=== PATIENT | male | born 1985 | race American Indian/Alaskan Native ===

== ENCOUNTER 2024-03-16 02:39 | Emergency (ER) | payer OTHER, SELFPAY ==
[2024-03-16 02:45] VITALS: BP 169/103
[2024-03-16 03:20] VITALS: BMI 31.1
--- NOTE | 2024-03-16 03:39 | ED.GENMED ---
History of Present Illness
<LAYA Vazquez (Lena) - Last Filed: 03/16/24 04:31>
General
Chief Complaint: Chest Pain
Source: patient
Exam Limitations: none
Time Seen by Provider: 03/16/24 03:26
Nursing documentation reviewed up to this point in time: agreed with
History of Present Illness
History of Present Illness:
Pt is a 38 yo male with PMHx of HLD managed with atorvastatin who presents to the ED after consuming cocaine earlier this evening with chest pain x a few hours. Pt reports he felt his heart racing, chest tightness, and clamminess. He took two 81mg
aspirin prior to awakening his to bring him to the ED for evaluation. In triage and on exam he is no longer symptomatic. He now denies arm or leg weakness, any dizziness or lightheadedness, vision changes, N/V, dyspnea, chest pain,
palpitations, abdominal pain. He has experienced this chest pain previously when he did cocaine 'years ago', with no cardiac sequelae. \\
Reports using cocaine 1-2x a month.
Concurrent alcohol consumption with cocaine tonight.
FHx of cardiac conditions - mother: 'some sort of double bypass', grandparents: [place]
Past History
<LAYA Vazquez (Lena) - Last Filed: 03/16/24 04:31>
Past History
ED Past Medical History: Hypercholesterolemia
Social History
Alcohol: Occasional
Drug: Cocaine (1-2x a month)
Personal:
Living: with family
Family History
Family History: CAD
Phy Exam
<LAYA Vazquez (Lena) - Last Filed: 03/16/24 04:31>
General Physical Exam
General Presentation: well appearing and no apparent distress
General age: appears stated age
General Skin: warm and dry
General Habitus: normal
General Mental: alert
General Hydration: appears well hydrated
ENT Exam
ENT Exam: EOMI
Eye Exam
Eye Exam: PERRL and EOMI
Pupil Exam: Bilateral: round, reactive and pinpoint
Cardiovascular Exam
Cardiovascular Exam: regular rate/rhythm, no edema, no gallop, no JVD, no murmur and normal peripheral pulses
Heart Sounds: normal
Pulmonary Exam
Pulmonary Exam: lungs clear and no respiratory distress
Gastrointestinal Exam
Gastrointestinal Exam: non tender and soft
Neurological Exam
Neurological Exam: alert, oriented x3 and speech normal
Musculoskeletal Exam
Musculoskeletal Exam: full ROM
Skin Exam
Skin Exam: normal color and warm/dry
Psychiatric Exam
Psychiatric Exam: normal mood/affect
Scores
<Thania Martinez DO - Last Filed: 03/16/24 05:23>
Heart Score for Chest Pain Patients
STEMI patient?: No
History: Slightly or Non-Suspicious
ECG: Normal
Age: </= 45 years
Risk Factors: 1 or 2 Risk Factors
Troponin: </= Normal Limit
Heart Score for Chest Pain Patients: 1
Heart Score Risk: 2.5% MACE over next 6 weeks
Course
<ST Vazquez (Lena)[place] - Last Filed: 03/16/24 04:31>
Orders/Labs/Results
Orders:
Orders
03/16/24 02:44
EKG [Electrocardiogram (*1)] Urgent
Reason for Study: Chest Pain
EKG- Treatment ONCE
03/16/24 03:45
0.9% Sodium Chloride 1000 ml [Nss] 1,000 ml IV BOLUS
03/16/24 03:50
Complete Blood Count/With Diff Urgent
TSH Reflex To Free T4 Urgent
03/16/24 03:51
Basic Metabolic Panel Urgent
Troponin I Urgent
Abnormal Lab Results
03/16/24 03/16/24
03:50 03:51
MCV 77.2 L fL
(80.0-94.0)
Absolute Neuts (auto) 7.4 H 10^3/uL
(1.4-6.5)
Lymphocytes % 19.7 L %
(20.5-51.1)
Glucose 145 H mg/dl
(70-99)
03/16/24 03:50
03/16/24 03:51
Vital Signs
Initial and Last Documented VS:
Initial Vital Signs
Temp Pulse Resp BP Pulse Ox
96.9 F L 115 18 169/103 96
03/16/24 02:45 03/16/24 02:45 03/16/24 02:45 03/16/24 02:45 03/16/24 02:45
Last Documented Vital Signs
Temp Pulse Resp BP Pulse Ox
96.9 F L 83 8 137/85 96
03/16/24 02:45 03/16/24 05:00 03/16/24 05:00 03/16/24 05:00 03/16/24 05:00
<Thania Martinez, DO - Last Filed: 03/16/24 05:23>
Orders/Labs/Results
Orders:
Orders
03/16/24 02:44
EKG [Electrocardiogram (*1)] Urgent
Reason for Study: Chest Pain
EKG- Treatment ONCE
03/16/24 03:45
0.9% Sodium Chloride 1000 ml [Nss] 1,000 ml IV BOLUS
03/16/24 03:50
Complete Blood Count/With Diff Urgent
TSH Reflex To Free T4 Urgent
03/16/24 03:51
Basic Metabolic Panel Urgent
Troponin I Urgent
Abnormal Lab Results
03/16/24 03/16/24
03:50 03:51
MCV 77.2 L fL
(80.0-94.0)
Absolute Neuts (auto) 7.4 H 10^3/uL
(1.4-6.5)
Lymphocytes % 19.7 L %
(20.5-51.1)
Glucose 145 H mg/dl
(70-99)
03/16/24 03:50
03/16/24 03:51
Vital Signs
Initial and Last Documented VS:
Initial Vital Signs
Temp Pulse Resp BP Pulse Ox
96.9 F L 115 18 169/103 96
03/16/24 02:45 03/16/24 02:45 03/16/24 02:45 03/16/24 02:45 03/16/24 02:45
Last Documented Vital Signs
Temp Pulse Resp BP Pulse Ox
96.9 F L 83 8 137/85 96
03/16/24 02:45 03/16/24 05:00 03/16/24 05:00 03/16/24 05:00 03/16/24 05:00
<LAYA Vazquez (Lena) - Last Filed: 03/16/24 04:31>
MDM/Problems Addressed
Differential Diagnosis Includes:
38yo male with recent ingestion of cocaine and alcohol, presenting with chest pain, palpitations, and clamminess.
Concern for acute coronary syndrome, [place], and cocaine-induced chest pain.
Reports using cocaine 1-2x a month.
Concurrent alcohol consumption with cocaine tonight.
FHx of cardiac conditions - mother: 'some sort of double bypass', grandparents: [place]
EKG: sinus tachycardia, normal axis
Given the FHx of cardiac conditions, a CBC, BMP, and troponins were ordered.
<Thania Martinez DO - Last Filed: 03/16/24 05:23>
*Pulse Oximetry
Patient hypoxic: no
*EKG
Interpreted by ED Provider?: Yes
Comparison EKG: no comparison EKG present
Rate: tachycardiac
Rhythm: sinus
[place]: normal axis
Interval: normal interval
QRS Pattern: normal QRS
Ischemia: no ischemia
*Pump Installation And [employer]icer Interpretation
Rate: normal
Interpretation: normal
Rhythm: sinus
*Critical Care Note
Total Time (30-74mins, 75-104mins- exclusive of procedures): Not Applicable
ED Attending Note
<LAYA Vazquez (Lena) - Last Filed: 03/16/24 04:31>
-
Portions of this chart may have been created with voice recognition software.� Occasional wrong word or��sound alike� substitutions may have occurred due to the inherent limitations of voice recognition software.
<Thania Martinez DO - Last Filed: 03/16/24 05:23>
ED Attending Note
Patient seen and examined by attending physician: Yes
I performed the substantive portion of visit, reviewed & personally made and approve the management plan that is documented in note by myself or ADAMS.: Yes
ED Attending Note:
This is a 38-year-old gentleman who complains of palpitations feeling that his heart was beating rapidly and somewhat hard while lying down to bed. Palpitations was accompanied with some chest pressure, no nausea or vomiting, no neck pain no back
pain.
He admits to snorting cocaine just prior to onset of symptoms.
He generally snorts cocaine perhaps twice per month and has had occasional similar palpitations and chest discomfort but rare on occurrence. He admits to becoming quite anxious with palpitations and chest pain and believes he worked himself up to a
panic attack.
Currently feeling improved with no further palpitations nor chest discomfort.
His only past medical history is hyperlipidemia, maintained on atorvastatin.
No recent travel. He denies leg pain or swelling.
He does smoke cigarettes. He denies alcohol use.
Family history of CAD in mom having a CABG. She also has history of diabetes.
GENERAL: 38-year-old gentleman appears his stated age, awake and alert, pleasant, appears in no acute distress.
EYE: anicteric
NECK: Supple, nontender, no meningismus, no significant adenopathy.
ENT: oral mucosa is moist. No rhinorrhea.
CARDIAC: Regular rate and rhythm at 98. no murmur.
LUNGS: Clear breath sounds bilaterally, no acute respiratory distress, no wheezes/rales/rhonchi
ABDOMEN: Soft, nondistended, without focal tenderness, normoactive BS.
NEUROLOGICAL: Alert and oriented x3, no focal neuro deficits. Gait is steady.
SKIN: Warm and dry, normal color, skin intact. No rash.
MUSCULOSKELETAL: No C/C/E. peripheral pulses are full and equal b/l. No palpable tenderness.
PSYCH: Normal and appropriate interaction.
Concern for ACS, cocaine related tachycardia, anxiety, less likely thyroid disorder, anemia.
EKG shows sinus tachycardia otherwise unremarkable. No old EKGs to compare.
Monitor shows mild sinus tachycardia which has since improved to normal sinus rhythm.
Moderate initial hypertension is improving.
Will check labs including troponin and thyroid function.
No history of thromboembolism nor risk factors for such.
03/16/2024 0522 AM patient
Continues to feel improved with no further palpitations nor chest pain. Resting comfortably.
Monitor shows normal sinus rhythm.
Blood pressure is normalized.
Labs are unremarkable including negative troponin, normal TSH.
Encouraged to discontinue all cocaine use and otherwise follow-up with primary care physician.
Discharge Plan
Departure
Patient Disposition: Home (Routine Discharge)
Date of Disposition: 03/16/24
Time of Disposition: 05:20
Patient with high blood pressure during this ER visit?: No
Condition: Good
Discharge Problem:
Nonspecific chest pain, Cocaine abuse
Instructions: Cocaine use disorder, Chest Pain PCP Follow Up
Prescriptions:
No Action
atorvastatin 20 mg Tablet
20 mg PO DAILY
Referrals:
PRIVATE,PHYSICIAN [Family Provider] - Call in 1-3 days for appt
Interventions
Interventions:
*Risk Screen - Suicide Last Done: 03/16/24 03:26
*General Assessment Last Done: 03/16/24 03:26
*Neglect/Abuse Screening Last Done: 03/16/24 03:26
*ED COVID-19 Vaccine History Last Done: 03/16/24 03:28
ED- Cardiac Assessment Last Done: 03/16/24 03:19
Discharge Date and Time
Print Language: IRISH
[2024-03-16] MEDS: NSS 1000 IV (03:46)
[2024-03-16 04:00] VITALS: BP 139/98
[2024-03-16 04:04] LABS: % Basophils 0.6 % (0-2); % Eosinophils 0.4 % (0-6); % Immature Granulocytes 0.3 % (0-0.5); % Lymphocytes 19.7 % (20.5-51.1); % Monocytes 5.4 % (1.7-9.3); % Neutrophils 73.6 % (42.2-75.2); Absolute Basophils 0.1 10^3/uL (0-0.2); Absolute Monocytes 0.5 10^3/uL (0.1-0.6); Absolute Neutrophils 7.4 10^3/uL (1.4-6.5); Hematocrit 41.6 % (39.0-52.0); Hemoglobin 14.6 g/dL (13.0-18.0); Mean Corp Hgb Conc. 35.1 g/dL (33.0-37.0); Mean Corpuscular Hgb 27.1 pg (27.0-31.0); Mean Corpuscular Volume 77.2 fL (80.0-94.0); Mean Platelet Volume 9.8 fL (7.4-10.4); Nucleated Red Blood Cells % 0 % (-); Platelet Count 286 10^3/uL (130-400); Red Blood Cell Count 5.39 10^6/uL (4.70-6.10); Red Cell Dist. Width 12.8 % (11.5-14.5); White Blood Cell Count 10.1 10^3/uL (4.8-10.8)
[2024-03-16 04:17] LABS: Blood Urea Nitrogen 14 mg/dl (9-20); Calcium 9.8 mg/dl (8.4-10.2); Carbon Dioxide 28 mmol/L (22-30); Chloride 102 mmol/L (98-107); Estimated Creatinine Clearance 119 ml/min; Glucose 145 mg/dl (70-99); Potassium 4.6 mmol/L (3.5-5.1); Sodium 140 mmol/L (135-145); eGFR > 60.00
[2024-03-16 04:29] LABS: Troponin I < 0.012 ng/ml
[2024-03-16 05:00] VITALS: BP 137/85
[2024-03-16 05:06] LABS: TSH Reflex To Free T4 1.62 uIU/ml (0.47-4.68)
== END 2024-03-16 05:45 | disposition home or self-care (01) ==
LOC: EMR 02:39
PROVIDERS: EMERGENCY PHYSICIAN Emergency Medicine
DX: R07.89 Other chest pain (principal); F14.10 Cocaine abuse, uncomplicated; F17.210 Nicotine dependence, cigarettes, uncomplicated
CPT/HCPCS: 99284; 80048; 84443; 84484; 85025; 93005